=== PATIENT | male | born 1945 | race Caucasian/White ===

== ENCOUNTER → 2022-04-03 | Day surgery (SDC) | payer MEDICARE, OTHER ==
[~2022-04-03] VITALS: Ht 170.2 cm; Wt 78.0 kg
[~2022-04-03] MED LIST: CARDURA4 MG PO; COREG 3.125M3.125 MG PO; CYMBALTA 30MG C30 MG PO; FLONASE ALLER15.8 ML; HCTZ12.5 MG PO; LISINOPRIL40 MG PO; LYRICA75 MG PO; PRILOSEC20 MG PO; SINGULAIR10 MG PO; ZANAFLEX4 MG PO; ZYRTEC10 M3 PO
[2022-04-03 08:09] LABS: HCT 40.1 % (42.0-52.0); HGB 13.8 g/dl (13.2-18.0); MCHC 34.4 g/dL (32.0-36.0); MCV 90.1 fL (78.0-100.0); MPV 10.9 fL (6.0-9.5); RBC 4.45 M/uL (4.70-6.00); RDW 12.7 % (11.5-14.0); WBC 8.2 K/uL (4.0-10.5)
[2022-04-03 08:39] LABS: ALBUMIN 3.5 g/dL (3.4-5.0); BILIRUBIN - TOTAL 0.9 mg/dL (0.2-1.0); BUN/CREAT RATIO (CALC) 26.3 RATIO; CREATININE 0.95 mg/dL (0.67-1.17); POTASSIUM 3.8 mmol/L (3.5-5.1); TOTAL PROTEIN 6.5 g/dL (6.4-8.2)
== END | disposition home or self-care (01) ==
LOC: FAS 07:23
PROVIDERS: Surgery
DX: Z12.11 Encounter for screening for malignant neoplasm of colon (principal); K57.30 Diverticulosis of large intestine without perforation or abscess without bleeding; K58.9 Irritable bowel syndrome, unspecified; K63.89 Other specified diseases of intestine; I10 Essential (primary) hypertension; Z86.010 Personal history of colon polyps; Z87.891 Personal history of nicotine dependence
CPT/HCPCS: 36415; 80053; J1610; J2250; J2704; J7120

== ENCOUNTER 2022-07-27 15:25 | Emergency (ER) | payer MEDICARE, OTHER ==
[2022-07-27] MEDS ORDERED: MEDROL 4MG DOSEP4 MG PO (17:45)
[2022-07-27] MEDS ORDERED: CYCLOBENZAPRINE10 MG PO (17:45)
== END 2022-07-27 18:04 | disposition home or self-care (01) ==
LOC: FER 15:25
DX: M54.31 Sciatica, right side (principal); I10 Essential (primary) hypertension
CPT/HCPCS: 73502; J1100